=== PATIENT | male | born 1965 | race Two or more races ===

== ENCOUNTER 2017-06-26 17:01 | Emergency (ER) | payer OTHER ==
[~2017-06-26] VITALS: Ht 193 cm; Wt 99.8 kg
--- NOTE | 2017-06-26 17:26 | NUR ---
PT PRESENTS WITH RUQ PAIN X 1 DAY. PT DENIES N/V/D. THE PT STATES "I HAVE AN OVERACTIVE GALLBLADDER." THE PT RATES HIS PAIN 6/10 (ACHING). THE PT DENIES CHEST PAIN AND/OR SOB. +MUMUR AUSCULTATED.
[2017-06-26 17:44] LABS: BASOPHILS # (AUTO) 0.1 /CMM (0.0-0.2); BASOPHILS % (AUTO) 0.7 % (0.0-2.0); EOSINOPHILS # (AUTO) 0.1 /CMM (0.0-0.7); EOSINOPHILS % (AUTO) 1.5 % (0.0-6.0); HEMATOCRIT 45 % (39-51); HEMOGLOBIN 15.6 g/dL (13.5-17.5); LYMPHOCYTES # (AUTO) 2.4 /CMM (0.8-4.8); LYMPHOCYTES % (AUTO) 29.8 % (20.0-44.0); MEAN CORPUSCULAR HEMOGLOBIN 29 PG (26.0-33.0); MEAN CORPUSCULAR HGB CONC 35 g/dl (31.0-36.0); MEAN CORPUSCULAR VOLUME 83 fL (80-96); MONOCYTES # (AUTO) 0.4 /CMM (0.1-1.30); MONOCYTES % (AUTO) 4.9 % (2.0-12.0); NEUTROPHILS # (AUTO) 5.1 /CMM (1.8-8.9); NEUTROPHILS % (AUTO) 63.1 % (43.0-81.0); PLATELET COUNT (AUTO) 241 /CMM (150-450); RDW COEFFICIENT OF VARIATION 12.7 (11.5-15.0); RED BLOOD CELL COUNT(AUTO) 5.42 MIL/uL (4.5-6.0); WHITE BLOOD COUNT (AUTO) 8.1 K/uL (4.3-11.0)
[2017-06-26 17:57] LABS: CREATININE 1.1 mg/dL (0.6-1.3); POTASSIUM 4.5 mmol/L (3.5-5.1)
[2017-06-26 18:03] LABS: BILIRUBIN,DIRECT 0.1 mg/dL (0.0-0.2); BILIRUBIN,TOTAL 0.5 mg/dL (0.2-1.0); TOTAL PROTEIN, SERUM 7.8 g/dL (6.4-8.2)
--- NOTE | 2017-06-26 18:15 | NUR ---
ULTRASOUND AT BEDSIDE.
--- NOTE | 2017-06-26 18:33 | NUR ---
URINE SPECIMEN RECEIVED FROM PT.
--- NOTE | 2017-06-26 18:38 | NUR ---
IV removed. Catheter intact and site benign. Pressure and 4x4 applied to site. No bleeding noted.
--- NOTE | 2017-06-26 18:38 | NUR ---
PT. VERBALIZED UNDERSTANDING OF AFTERCARE INSTRUCTIONS.Patient discharged to home in stable condition. Written and verbal after care instructions given. Patient verbalizes understanding of instruction.
[2017-06-26 18:39] VITALS: BP 119/78
== END 2017-06-26 18:41 | disposition home or self-care (01) ==
LOC: ER 17:03
DX: K80.50 Calculus of bile duct without cholangitis or cholecystitis without obstruction (principal); E78.5 Hyperlipidemia, unspecified
CPT/HCPCS: 36415; 76705; 80048; 80076; 83690; 85025; 99285; A4606; Z7610